=== PATIENT | female | born 1990 | race Hispanic/Latino ===

== ENCOUNTER 2020-11-25 08:45 | Emergency (ER) | payer OTHER, SELFPAY ==
[2020-11-25 08:55] VITALS: BP 138/91; PULSE 89; RESP 16; TEMP 36.7; O2SAT 99
--- NOTE | 2020-11-25 09:04 | ED.EAR ---
HPI - Ear Problem General Chief complaint: Ear Stated complaint: ear pain Time Seen by Provider: 11/25/20 09:00 Source: patient Mode of arrival: ambulatory Limitations: no limitations History of Present Illness HPI Narrative: Sarah Echevarria is a 30 yo female with no PMH who comes to [facility] with complaints of right ear tenderness and drainage for the past 2 days. She states she has had some on and off tenderness for up to 2 weeks denies regular use of Q-tips are putting anything the ear that would obstruct it. States ear canal feels swollen Related Data Home Medications Medication Instructions Recorded Confirmed No Home Medications 04/15/19 11/25/20 Allergies Allergy/AdvReac Type Severity Reaction Status Date / Time No Known Allergies Allergy Verified 11/25/20 09:02 Review of Systems Review of Systems: CONSTITUTIONAL: Denies fever, chills, sweats. EYES: Denies visual changes, redness, discharge. ENT: Denies rhinorrhea, congestion, sore throat, right otalgia. CARDIOVASCULAR: Denies chest pain, palpitations, edema. RESPIRATORY: Denies dyspnea, wheezing, cough GASTROINTESTINAL: Denies abdominal pain, nausea, vomiting, diarrhea. GENITOURINARY: Denies dysuria, hematuria, abnormal discharge SKIN: Denies rash or itching. NEUROLOGIC: Denies numbness, or focal weakness. PSYCHIATRIC: Denies anxiety or depression. PMFSH Past Medical History Medical History Subcutaneous mass of left upper extremity Family History Family History Father Family history of elevated blood lipids Hypertension Mother Family history of elevated blood lipids Hypertension Family history of diabetes mellitus in first degree relative Social History Social History Smoking status: Never smoker Alcohol intake: current Gender identity (if verbalized by the patient): Female Comments At time of signature, I agree with nursing past medical, surgical, social and family history. There is no relevant family history pertinent to the presenting complaint. Blood pressure elevated at this visit should follow-up with PCP this week for recheck Exam Narrative: GENERAL: This is a well-nourished, well-developed patient, in mild distress. HEAD: normocephalic, atraumatic. EYES: Sclera clear/white. Vision is grossly intact. EARS: External ears normal, auditory canals clear on L, mild erythema, R canal edematous, erythema, cloudiness of TM. TMs normal without perforation. Hearing grossly intact. NOSE: External nose normal without nasal discharge, nares without redness, no rhinorrhea. THROAT: Mucous membranes moist, NECK: Neck supple, CARDIOVASCULAR: Regular rate and rhythm without murmurs, gallops, or rubs. RESPIRATORY: Clear to auscultation. Breath sounds equal bilaterally. No wheezes, rales, or rhonchi. GASTROINTESTINAL: Abdomen soft, SKIN: warm, intact with no suspicious lesions or rash, good texture and turgor. NEURO: awake, alert, and oriented to person, place and time. There were no obvious focal neurologic abnormalities. Steady gait EXTREMITIES: Normal range of motion. BACK: Nontender without deformity Course Course Emergency Course: Patient comes with right ear drainage and tenderness Polymyxin and Zyrtec Patient has history of ear infections and started out with ear itchiness. Started on Zyrtec but should follow-up with primary care physician Vital Signs Vital signs: Vital Signs Temperature 98.1 F 11/25/20 08:55 Pulse Rate 89 11/25/20 08:55 Respiratory Rate 16 11/25/20 08:55 Blood Pressure 138/91 H 11/25/20 08:55 Pulse Oximetry 99 11/25/20 08:55 Temperature 98.1 F 11/25/20 08:55 Pulse Rate 89 11/25/20 08:55 Respiratory Rate 16 11/25/20 08:55 Blood Pressure 138/91 H 11/25/20 08:55 Pulse Oximetry 99 11/25/20 08:55 Medical
== END 2020-11-25 09:28 | disposition home or self-care (01) ==
PROVIDERS: Emergency Provider Nurse Practitioner; PCP Family Medicine
DX: H65.01 Acute serous otitis media, right ear (principal)
CPT/HCPCS: 99213; G0463

== ENCOUNTER → 2023-03-24 15:52 | Outpatient (CLI) | payer OTHER, SELFPAY ==
--- NOTE | ~2023-03-24 | US_ITS ---
Pelvic ultrasound. Clinical History: First trimester , establish dates and viability Technique: Realtime transabdominal and transvaginal scanning of the pelvis was performed. Color flow Doppler and Doppler spectral analysis were performed. Findings: The uterus is anteverted, and contains an intrauterine gestation. Probable exophytic fibroi d anteriorly measures 1.7 cm in diameter. Eminence-rump length of 2.4 cm corresponds to an estimated ges tational age of 9 weeks 1 day. heart rate is 179 bpm. The right ovary is not visualized. No significant right ovarian or adnexal mass is seen. The left ovary measures 2.1 x 1.9 x 2.0 cm. No significant left ovarian or adnexal mass is seen. There is no evidence of free fluid in the cul de sac. Impression: Live intrauterine gestation, with estimated gestational age of 9 weeks 1 day. heart rate is 179 bpm. Sonographic STACIE is 10/26/2023. Probable small exophytic fibroid, as above. Reviewed, dictated and finalized at location . DATA ARCHITECT Impression: Live intrauterine gestation, with estimated gestational age of 9 weeks 1 day. F etal heart rate is 179 bpm. Sonographic STACIE is 10/26/2023. Probable small exophytic fibroid, as above.
== END ==
PROVIDERS: PCP Advanced Practice Midwife; Visit Provider Advanced Practice Midwife
DX: O36.80X0 Pregnancy with inconclusive fetal viability, not applicable or unspecified (principal)
CPT/HCPCS: 76817

== ENCOUNTER → 2023-05-31 09:16 | Outpatient (CLI) | payer OTHER, SELFPAY ==
--- NOTE | ~2023-05-31 | US_ITS ---
EXAMINATION: US OB /maternal detail DATE: 05/31/2023 10:19 INDICATION: Second trimester anatomic survey TECHNIQUE: Real-time ultrasound of the pelvis was performed. COMPARISON: None. FINDINGS: There is a single living fetus in variable presentation. The placenta is anterior and 10.7 cm from th e internal cervical os. The measured cervical length is 4.4 cm. heart rate is 152 beats per min reginaldo (bpm). cardiac activity and movement are noted. The amniotic fluid index is subjecti vely normal. The following anatomy was identified as normal: 4 chamber heart 3 vessel cord cord insertion kidneys urinary bladder stomach spine diaphragm ventricles cisterna magna cerebellum The following biometric data were obtained: Biparietal diameter (BPD): 4.4 cm; head circumference (HC): 16.6 cm; abdominal circumference (AC): 13 .9 cm; femur length (FL): 2.8 cm. These measurements are concordant. Estimated weight is 268 g +/- 40 g, which correlates with the 55th percentile when 10/26/2023 is used as estimated date of delivery. As single measurements, these parameters are each equal to the following estimated gestational ages w ith ranges of +/- 2 standard deviations: BPD: 19 weeks 2 days ( 17 weeks 4 days - 21 weeks 0 days). HC: 19 weeks 2 days ( 17 weeks 6 days - 20 weeks 6 days). AC: 19 weeks 2 days ( 17 weeks 2 days - 21 weeks 3 days). FL: 18 weeks 4 days ( 16 weeks 5 days - 20 weeks 2 days). estimated gestational age based solely on measurements from this exam is 19 weeks 1 days +/- 1 weeks 2 days. IMPRESSION: 1. Single living fetus in variable presentation. 2. Estimated weight is 268 g +/- 40 g, which correlates with the 55th percentile when 10/26/2023 is used as estimated date of delivery. Reviewed, dictated and finalized at location B. PATTERN ASSEMBLER IMPRESSION: 1. Single living fetus in variable presentation. 2. Estimated weight is 268 g +/- 40 g, which correlates with the 55th per centile when 10/26/2023 is used as estimated date of delivery.
== END ==
PROVIDERS: PCP Advanced Practice Midwife; Visit Provider Advanced Practice Midwife
DX: Z36.9 Encounter for antenatal screening, unspecified (principal); Z3A.19 19 weeks gestation of pregnancy
CPT/HCPCS: 76805

== ENCOUNTER 2023-08-14 16:28 | Outpatient (CLI) | payer OTHER, SELFPAY ==
[2023-08-14] VITALS (8 sets, daily range): BP systolic 110–130; BP diastolic 78–86; PULSE 70–90; BMI 45.2
[2023-08-14 17:37] LABS: Basophils Percent Auto 0.3 % (0.2-1.2); Eosinophils Percent Auto 0.3 % (0-4.4); Hematocrit 39.8 % (37.0-47.0); Hemoglobin 12.9 g/dL (12.0-15.0); Immature Granulocyte Absolute 0.08 K/mm3 (0.00-0.031); Immature Granulocyte Percent A 0.6 % (0-0.5); Lymphocytes Absolute Auto 2.87 K/mm3 (0.9-3.2); Lymphocytes Percent Auto 23.2 % (18.3-44.2); Mean Corpuscular HGB Conc 32.4 g/dl (32-36); Mean Corpuscular Hemoglobin 30.4 pg (26-34); Mean Corpuscular Volume 93.6 fl (80-100); Mean Platelet Volume 10.6 fl (7.4-10.4); Monocytes Absolute Auto 0.6 K/mm3 (0.1-0.6); Monocytes Percent Auto 4.8 % (2.6-8.5); Neutrophils Absolute Auto 8.7 K/mm3 (1.3-6.7); Neutrophils Percent Auto 70.8 % (45.5-73.1); Platelet Count Result 283 k/mm3 (150-375); Red Blood Count 4.25 M/mm3 (4.2-5.4); Red Cell Distribution Width 13.2 % (11.5-14.5); White Blood Count 12.4 K/mm3 (4.5-10.0)
[2023-08-14 17:47] LABS: Alanine Aminotransferase 12 U/L (6-35); Alkaline Phosphatase 104 U/L (38-126); Anion Gap 6 mmol/L (4-12); Aspartate Amino Transferase 18 U/L (14-36); Bilirubin,Total 0.3 mg/dL (0.2-1.3); Blood Urea Nitrogen 11 mg/dL (7-17); Calcium 9.6 mg/dL (8.4-10.2); Carbon Dioxide 23 mmol/L (22-30); Chloride 108 mmol/L (98-107); Estimated Glomerular Filt Rate > 60; Glucose 92 mg/dL (65-110); Potassium 4.6 mmol/L (3.4-5.0); Sodium 137 mmol/L (137-145); Uric Acid 5.5 mg/dL (2.5-7.5)
[2023-08-14 18:08] LABS: Appearance Urine Cloudy (Clear); Bacteria Urine None Seen /hpf; Bilirubin Urine Negative (Negative); Blood Urine Negative (Negative); Color Urine Yellow (Yellow); Glucose Urine UA Negative (Negative); Ketones Urine 2+ mg/dL (Negative); Leukocyte Esterase Ur Trace LEU/UL (Negative); Nitrate Urine Negative (Negative); Non Pathogenic Casts 0-2; Protein Urine Negative (Negative); RBC Urine 0-2 /hpf (0-2); Specific Grav Ur 1.015 (1.001-1.035); Squamous Epithelial Cell Urine Occasional /hpf (Few); Urobilinogen Urine 0.2 mg/dL (<2.0); WBC Urine 0-5 /hpf (0-3)
[2023-08-14 18:10] LABS: Add Urine Microscopic? YES; Creatinine Urine 66.9 mg/dL; Total Protein Urine Random 6 mg/dL; Ur Ttl Prot Creatinine Ratio 0.09 mg/mg (0-0.20)
--- NOTE | 2023-08-14 18:30 | PC.NURSE ---
Dr. Corrigan returned page and informed of reactive NST with 15 beat accels at 30 wks. Informed of BP's and lab results. OK to discharge pt to home. Pt to do 24 hr urine collection to have a baseline.
== END 2023-08-14 18:45 | disposition home or self-care (01) ==
LOC: ANHOBOP 16:33 → ANHOBPP 16:33
PROVIDERS: Visit Provider Advanced Practice Midwife
DX: O13.9 Gestational [pregnancy-induced] hypertension without significant proteinuria, unspecified trimester (principal)
CPT/HCPCS: 36415; 59025; 80053; 81001; 82570; 84156; 84550; 85025; 99199

== ENCOUNTER 2023-08-16 15:11 | Outpatient (CLI) | payer OTHER, SELFPAY ==
[2023-08-16 15:20] VITALS: BMI 45.1
[2023-08-16 16:54] LABS: Collection Time Urine 24 HOURS
[2023-08-16 17:22] LABS: Total Volume 24 Hour Urine 1650 ml
[2023-08-16 17:22] LABS: Total Volume 24 Hour Urine 1650 ml
[2023-08-16 17:43] LABS: Creatinine Clearance Urine 136.7 ml/min (75-125); Creatinine Urine 99.7 mg/dL; Patient Weight 297 Lbs
[2023-08-16 18:03] LABS: Total Protein Urine 24 Hr 82 mg/24hr (28-141); Total Protein Urine Random < 5 mg/dL
== END 2023-08-16 15:12 | disposition home or self-care (01) ==
LOC: ANHOBOP 15:18
PROVIDERS: Visit Provider Obstetrics & Gynecology Gynecology
DX: Z34.90 Encounter for supervision of normal pregnancy, unspecified, unspecified trimester (principal); Z3A.00 Weeks of gestation of pregnancy not specified
CPT/HCPCS: 81050; 82575; 84156

== ENCOUNTER 2023-09-23 09:34 | Outpatient (CLI) | payer OTHER, SELFPAY ==
--- NOTE | ~2023-09-23 | US_ITS ---
LIMITED OBSTETRIC ULTRASOUND Ordering provider: Aliyah Rod, [employer] History: . Size greater than dates . Comparison: None. FINDINGS/impression: Single live fetus. Gestational age is 35 weeks. STACIE is October 28, 2023. The cervix measures 3.4 cm. PRESENTATION: Vertex. Longitudinal lie. PLACENTAL LOCATION: Anterior No previa. Distance from cervix is out of range. HEART RATE: 159 bpm (normal is between 110 to 160 bpm). AMNIOTIC FLUID INDEX: 15 cm. Largest vertical pocket is 4.8 cm. normal (JUNE between 5-25 cm in from 20-35 weeks gestation is considered normal). Estimated weight is 2471 gm. Reviewed, dictated and finalized at location A.
== END 2023-09-23 09:35 ==
PROVIDERS: PCP Nurse Practitioner Women's Health; Visit Provider Nurse Practitioner Women's Health
DX: O36.63X0 Maternal care for excessive fetal growth, third trimester, not applicable or unspecified (principal)
CPT/HCPCS: 76816

== ENCOUNTER 2023-09-23 10:04 | Inpatient (IN) | payer OTHER, SELFPAY ==
[2023-09-23] VITALS (81 sets, daily range): BP systolic 124–180; BP diastolic 78–100; PULSE 46–91; RESP 18; TEMP 36.8; O2SAT 98–100; BMI 45.2
[2023-09-23 10:48] LABS: Basophils Percent Auto 0.3 % (0.2-1.2); Eosinophils Percent Auto 0.3 % (0-4.4); Hematocrit 41.2 % (37.0-47.0); Hemoglobin 13.6 g/dL (12.0-15.0); Immature Granulocyte Percent A 0.9 % (0-0.5); Lymphocytes Percent Auto 20.8 % (18.3-44.2); Mean Corpuscular Hemoglobin 30.4 pg (26-34); Mean Platelet Volume 10.9 fl (7.4-10.4); Monocytes Absolute Auto 0.7 K/mm3 (0.1-0.6); Monocytes Percent Auto 6.2 % (2.6-8.5); Neutrophils Absolute Auto 8.3 K/mm3 (1.3-6.7); Neutrophils Percent Auto 71.5 % (45.5-73.1); Platelet Count Result 191 k/mm3 (150-375); Red Blood Count 4.48 M/mm3 (4.2-5.4); White Blood Count 11.6 K/mm3 (4.5-10.0)
[2023-09-23 10:54] LABS: Appearance Urine Clear (Clear); Bacteria Urine Rare /hpf; Bilirubin Urine Negative (Negative); Blood Urine Negative (Negative); Color Urine Yellow (Yellow); Glucose Urine UA Negative (Negative); Ketones Urine Negative (Negative); Leukocyte Esterase Ur Negative LEU/UL (Negative); Nitrate Urine Negative (Negative); Non Pathogenic Casts 0-2; Protein Urine 1+ mg/dL (Negative); RBC Urine 0-2 /hpf (0-2); Specific Grav Ur 1.015 (1.001-1.035); Squamous Epithelial Cell Urine None Seen /hpf (Few); Urobilinogen Urine 0.2 mg/dL (<2.0); WBC Urine 0-5 /hpf (0-3); pH Urine 6.5 (5.0-9.0)
[2023-09-23 10:55] LABS: Creatinine Urine 89.9 mg/dL; Total Protein Urine Random 37 mg/dL; Ur Ttl Prot Creatinine Ratio 0.41 mg/mg (0-0.20)
[2023-09-23 10:58] LABS: Alanine Aminotransferase 38 U/L (6-35); Albumin Level 3.7 g/dL (3.5-5.1); Alkaline Phosphatase 132 U/L (38-126); Anion Gap 4 mmol/L (4-12); Aspartate Amino Transferase 59 U/L (14-36); Bilirubin,Total 0.4 mg/dL (0.2-1.3); Blood Urea Nitrogen 13 mg/dL (7-17); Calcium 9.2 mg/dL (8.4-10.2); Carbon Dioxide 24 mmol/L (22-30); Chloride 105 mmol/L (98-107); Estimated Glomerular Filt Rate > 60; Glucose 82 mg/dL (65-110); Potassium 4.6 mmol/L (3.4-5.0); Sodium 133 mmol/L (137-145); Uric Acid 8.3 mg/dL (2.5-7.5)
[2023-09-23 11:08] LABS: Add Urine Microscopic? YES
--- NOTE | 2023-09-23 11:18 | PC.NURSE ---
Beka Lombardo CNM informed of reactive NST, BP's, and lab results including elevated liver enzymes, uric acid, and total protein/ creatinine ratio. CNM plans to discuss pt with Dr. Pauline Littlejohn.
[2023-09-23 11:40] LABS: Lactate Dehydrogenase 289 U/L (120-246)
--- NOTE | 2023-09-23 11:59 | PM.IMHP ---
H&P: HPI History of Present Illness Date/Time: 09/23/23 11:59 Chief Complaint: Elevated blood pressure in the office Narrative: 1. 33 y.o. at 35 weeks 5 days by LMP = 1st trimester ultrasound 2. Severe range BP in the office 3. gHTN 4. uterine fibroid 5. Hx PVCs Review of Systems Review of Systems: All systems reviewed & are unremarkable except as noted in HPI and below PMFSH Past Medical History Medical History Subcutaneous mass of left upper extremity Family History Family History Father Family history of elevated blood lipids Hypertension Mother Family history of elevated blood lipids Hypertension Family history of diabetes mellitus in first degree relative Social History Social History Smoking status: Never smoker Alcohol intake: current Gender identity (if verbalized by the patient): Female Meds Home Medications and Allergies Home Medications Medication Instructions Recorded Confirmed Type aspirin 81 mg capsule 81 mg PO DAILY 08/14/23 08/14/23 History ergocalciferol (vitamin D2) 1,250 1,250 mcg PO 2XW 08/14/23 08/14/23 History mcg (50,000 unit) capsule (Vitamin D2) vit no.95-ferrous 1 tablet PO DAILY 08/14/23 08/14/23 History fumarate 28 mg-folic acid 800 mcg tablet () Allergies Allergy/AdvReac Type Severity Reaction Status Date / Time No Known Allergies Allergy Verified 11/25/20 09:02 Vital Signs Vital Signs - 24 hr 09/23/23 10:33 09/23/23 10:46 09/23/23 11:00 Pulse Rate 59 L 56 L 48 L Blood Pressure 138/87 129/81 124/78 09/23/23 11:15 Pulse Rate 46 L Blood Pressure 129/79 Exam Const: General: comfortable and no acute distress Eyes: General: appearance normal, both eyes and all related structures Neck: Neck: supple Resp: Effort & Inspection: normal respiratory effort Auscultation: clear to auscultation bilaterally Cardio: Rate: bradycardic GI: GI Palp: Yes Soft to palpation : General: Yes bladder normal to palpation Skin: General skin exam: normal color and no rashes or lesions noted Neuro: General: gait normal Speech: normal speech Sensory Exam: normal sensation Extrem: General: normal to inspection Psych: Mental Status: mental status grossly normal Affect: normal affect H&P: Results Labs Labs: Short CBC 09/23/23 Range/Units 10:33 WBC 11.6 H (4.5-10.0) K/mm3 Hgb 13.6 (12.0-15.0) g/dL Hct 41.2 (37.0-47.0) % Plt Count 191 (150-375) k/mm3 BMP 09/23/23 10:33 Sodium 133 L Potassium 4.6 Chloride 105 Carbon Dioxide 24 BUN 13 Creatinine 0.80 Glucose 82 Calcium 9.2 Liver Function 09/23/23 Range/Units 10:33 Total Bilirubin 0.4 (0.2-1.3) mg/dL AST 59 H (14-36) U/L ALT 38 H (6-35) U/L Alkaline Phosphatase 132 H (38-126) U/L Albumin 3.7 (3.5-5.1) g/dL Urine 09/23/23 Range/Units 10:33 Urine Color Yellow (Yellow) Urine Appearance Clear (Clear) Urine pH 6.5 (5.0-9.0) Ur Specific [facility] 1.015 (1.001-1.035) Urine Protein 1+ H (Negative) mg/dL Urine Glucose (UA) Negative (Negative) mg/dL Assessment and Plan Assessment and plan (1) Preeclampsia: Code(s): O14.90 - Unspecified pre-eclampsia, unspecified trimester Status: Acute (2) Bradycardia: Code(s): R00.1 - Bradycardia, unspecified Status: Acute (3) Uterine fibroid complicating care, baby not yet delivered: Code(s): O34.10 - Maternal care for benign tumor of corpus uteri, unspecified trimester; D25.9 - Leiomyoma of uterus, unspecified Status: Acute Plan 1. 33 y.o. at 35 weeks 5 days by LMP = 1st trimester ultrasound - plan NSTs BID - s/p growth US today, results pending - celestone for lung maturit
--- NOTE | 2023-09-23 12:03 | ECG_ITS ---
Test Date: 2023-09-23 12:22:21 Measurements Intervals [place] Rate: 47 P: 28 NE: 145 QRS: -18 QRSD: 89 T: 19 QT: 445 QTc: 397 Interpretive Statements SINUS BRADYCARDIA LOW QRS VOLTAGE IN PRECORDIAL LEADS [QRS DEFLECTION < 1.0 mV IN CHEST LEADS] INCOMPLETE RIGHT BUNDLE BRANCH BLOCK No previous ECG available for comparison Electronically Signed On 09-23-2023 16:04:25 CDT by Renny Stephens M.D.
[2023-09-23] MEDS: BETAMETHASONE SOD PHOS/ACETATE 30 MG/5 ML VIAL 12 MG IM (12:39)
--- NOTE | 2023-09-23 15:31 | PC.NURSE ---
Pt has now had 3 severe range BP's while pre-admission being done. Pt continues to deny headache, visual disturbance, epigastric/RUQ pain. DTR's 1+ and no clonus. Beka Lombardo [facility] paged.
--- NOTE | 2023-09-23 15:52 | PC.NURSE ---
monitor reapplied to assess baby due to pt's severe BP's.
--- NOTE | 2023-09-23 16:04 | PM.OBPNLAB ---
Pain Control Date/time seen: 09/23/23 16:00 Assessment and Plan Comments: CNM called by Patricia MCKNIGHT. Pt noted to have 3 severe range BPs during registration process. Repeat BP mild at 147/91. Continue BPs q 15 and plan to treat with maternal HTN protocol for any sustained severe range BPs. Pt denies PARRA, visual changes, RUQ pain per RN. Previously discussed plan of care with Dr. Pauline Littlejohn. aware of maternal HR, EKG, labs. Plan repeat labs in the am.
--- NOTE | 2023-09-23 16:15 | PC.NURSE ---
Dr. Pauline Littlejohn (Back up OB MD for Beka PARKER while Dr. Corrigan out of town) on unit and updated on pt having severe range BP's and was waiting for return page from CNM. Order received for IV Labetalol protocol. MD does not want Magnesium sulfate started at this time.
--- NOTE | 2023-09-23 16:24 | PC.NURSE ---
Beka Lombardo [facility] returned page and informed of severe range BP's that Dr. Pauline Littlejohn gave orders for IV Labetalol, but no Magnesium sulfate at this time.
--- NOTE | 2023-09-23 16:27 | PC.NURSE ---
Dr. Pauline Littlejohn in to see pt and discussed plan of care- trying to get steroids on board to help with this expected delivery. If we can stabilize BP's, would like to repeat Celestone in 24 hr and induce labor on . MD did discuss that Magnesium Sulfate is used to prevent seizures in people with preeclampsia, but doesn't feel it is needed yet. Pt to report any symptoms of headahce, visual disturbance, or upper abdominal pain. Pt's questions answered.
--- NOTE | 2023-09-23 16:48 | PC.NURSE ---
Dr. Pauline Littlejohn informed that after IV was placed, repeat BP 144/88. Order received to hold IV Labetalol and start PO now.
[2023-09-23] MEDS: LABETALOL HCL 100 MG TABLET 200 MG PO (16:56)
--- NOTE | 2023-09-23 18:02 | PC.NURSE ---
Dr. Pauline Littlejohn on unit and reviewed monitor with MD including period of tachycardia that has resolved and now back to her baseline of 135 and reactive. Discussed improved BP's. OK to go back to intermittent monitoring. BP's q 1 hr for the next couple of hours and if they remain OK to go to q 4 hr.
[2023-09-23 18:09] LABS: HIV 1/2 Ab P24 Ag Result Negative (Negative)
--- NOTE | 2023-09-23 19:00 | LDADM ---
This patient, Sarah Echevarria, was admitted to OB Post [facility] on 09/23/23 at 10:04. Plans for labor, pain management and were discussed with patient. Patient/family oriented to hospital policies and general routines including ID bracelet, bed and alarms, visiting hours, pain management, procedures, bathroom and other care routines, personal items, smoking policy, room service/diet and guest tray routines, security routines, and visiting hours. Patient/Family are encouraged to report perceived risks to care and to ask questions if they do not understand what they are told or what they should do. See OBIX for further documentation.
--- NOTE | 2023-09-23 19:57 | PC.NURSE ---
Dr. Pauline Littlejohn informed of EKG report with incomplete right bundle branch block. Pt's pulse has been in the 60's- 70's the last few hours.
[2023-09-24] VITALS (160 sets, daily range): BP systolic 114–154; BP diastolic 65–91; PULSE 57–95; RESP 16; TEMP 36.3–37.3; O2SAT 98–100; BMI 46.3
[2023-09-24] MEDS: FAMOTIDINE 20 MG/2 ML VIAL IV PUSH (00:36)
[2023-09-24] MEDS: LABETALOL HCL 100 MG TABLET 200 MG PO ×3 (01:06→17:06)
[2023-09-24 05:33] LABS: Hemoglobin 14.4 g/dL (12.0-15.0); Mean Corpuscular HGB Conc 32.7 g/dl (32-36); Mean Corpuscular Hemoglobin 30.3 pg (26-34); Mean Corpuscular Volume 92.4 fl (80-100); Mean Platelet Volume 10.8 fl (7.4-10.4); Platelet Count Result 200 k/mm3 (150-375); Red Blood Count 4.76 M/mm3 (4.2-5.4); Red Cell Distribution Width 12.9 % (11.5-14.5); White Blood Count 14.2 K/mm3 (4.5-10.0)
[2023-09-24 05:45] LABS: Albumin Level 4.2 g/dL (3.5-5.1); Alkaline Phosphatase 133 U/L (38-126); Anion Gap 11 mmol/L (4-12); Aspartate Amino Transferase 46 U/L (14-36); Bilirubin,Total 0.5 mg/dL (0.2-1.3); Blood Urea Nitrogen 14 mg/dL (7-17); Calcium 8.9 mg/dL (8.4-10.2); Carbon Dioxide 18 mmol/L (22-30); Chloride 102 mmol/L (98-107); Estimated CRCL calculation 145 ml/min; Estimated Glomerular Filt Rate > 60; Glucose 115 mg/dL (65-110); Lactate Dehydrogenase 225 U/L (120-246); Potassium 3.7 mmol/L (3.4-5.0); Sodium 131 mmol/L (137-145)
[2023-09-24 05:54] LABS: Alanine Aminotransferase 41 U/L (6-35)
[2023-09-24] MEDS: MULTIVIT/MIN/PREN/FOL AC/IRON TABLET 1 TAB PO (08:57)
[2023-09-24] MEDS: ERGOCALCIFEROL 50,000 UNITS CAPSULE 50000 UNITS PO (08:57)
[2023-09-24] MEDS: ASPIRIN 81 MG ENTERIC TABLET PO (08:57)
--- NOTE | 2023-09-24 10:02 | PC.NURSE ---
Off monitor to shower.
[2023-09-24] MEDS: BETAMETHASONE SOD PHOS/ACETATE 30 MG/5 ML VIAL 12 MG IM (12:08)
--- NOTE | 2023-09-24 12:52 | P.PNOB_ITS ---
OB - PN: Subj Subjective Date/time seen: 09/24/23 0725 Interval history: CNM at bedside. Denies PARRA, visual changes, RUQ pain, or change in edema. Discussed plan of care in great detail including celestone, labs, BPs, and preeclampsia. Patient comments: no complaints OB - PN: Obj Data Labs 09/24/23 05:08 09/24/23 05:08 Labs: Laboratory Results - last 24 hr 09/23/23 09/23/23 09/24/23 10:33 17:05 05:08 WBC 14.2 H RBC 4.76 Hgb 14.4 Hct 44.0 MCV 92.4 MCH 30.3 MCHC 32.7 RDW 12.9 Plt Count 200 MPV 10.8 H Sodium 131 L Potassium 3.7 Chloride 102 Carbon Dioxide 18 L Anion Gap 11 BUN 14 Creatinine 0.70 Estim Creat Clear Calc 145 Estimated GFR > 60 Glucose 115 H Calcium 8.9 Total Bilirubin 0.5 AST 46 H ALT 41 H Alkaline Phosphatase 133 H Lactate Dehydrogenase 225 Total Protein 8.0 Albumin 4.2 HIV 1&2 Ab/P24 Ag 4thGn Negative Blood Type A Positive Antibody Screen Negative OB - PN A/P Assessment and Plan (1) Preeclampsia: Code(s): O14.90 - Unspecified pre-eclampsia, unspecified trimester Status: Acute Time Spent With Patient Time: Total time spent is greater than 50% in coordination of care (as documented) at patient's floor/unit and/or counseling patient: Review of Systems Review of Systems: All systems reviewed & are unremarkable except as noted in HPI and below Exam Const: General: cooperative, healthy appearing, no acute distress and awake Nutritional Appearance: obese Orientation/consciousness: patient oriented x3 Limitations: no limitations HENMT: Head: normal to inspection Eyes: General: appearance normal, both eyes and all related structures Resp: Effort & Inspection: normal respiratory effort and able to speak in complete sentences Cardio: Rate: regular rate and bradycardic (on EKG 09/23/23) GI: Inspection: normal to inspection Back/Spine/Pelvis: Back: no CVA tenderness Skin: General skin exam: normal color and no rashes or lesions noted Rashes: no rashes Neuro: General: patient oriented x3 Speech: normal speech Deep tendon reflexes (DTR's): Right brachioradialis reflex intensity grade: 2+ and Left br achioradialis reflex intensity grade: 2+ Extrem: General: normal to inspection and capillary refill normal Right lower extremity: edema (trace) Left lower extremity: edema (trace) Psych: Appearance: grossly normal Mental Status: mental status grossly normal Speech and movement: Normal speech and movement present Affect: normal affect Attitude: cooperative Thought process: Normal thought process present Insight: Good insight present (Psych) Judgement: Good judgement present (Psych)
[2023-09-24] MEDS: CALCIUM CARBONATE (TUMS) 500 MG (200 MG ELEMENTAL) PO (12:54)
--- NOTE | 2023-09-24 13:01 | PM.OBPNVD ---
OB - PN: Subj Subjective Date/time seen: 09/24/23 13:01 Interval history: Called and spoke with pt on telephone. Dr. Pauline Littlejohn previously discussed and recommended IOL this evening d/t preeclampsia. pt has no additional questions at this time. OB - PN: Obj Data Labs 09/24/23 05:08 09/24/23 05:08 Labs: Laboratory Results - last 24 hr 09/23/23 09/23/23 09/24/23 10:33 17:05 05:08 WBC 14.2 H RBC 4.76 Hgb 14.4 Hct 44.0 MCV 92.4 MCH 30.3 MCHC 32.7 RDW 12.9 Plt Count 200 MPV 10.8 H Sodium 131 L Potassium 3.7 Chloride 102 Carbon Dioxide 18 L Anion Gap 11 BUN 14 Creatinine 0.70 Estim Creat Clear Calc 145 Estimated GFR > 60 Glucose 115 H Calcium 8.9 Total Bilirubin 0.5 AST 46 H ALT 41 H Alkaline Phosphatase 133 H Lactate Dehydrogenase 225 Total Protein 8.0 Albumin 4.2 HIV 1&2 Ab/P24 Ag 4thGn Negative Blood Type A Positive Antibody Screen Negative OB - PN A/P Time Spent With Patient Time: Total time spent is greater than 50% in coordination of care (as documented) at patient's floor/unit and/or counseling patient:
[2023-09-24 13:49] LABS: Rapid Plasma Reagin Non-Reactive (NonReactive)
--- NOTE | 2023-09-24 14:00 | PC.NURSE ---
Heartburn has resolved
--- NOTE | 2023-09-24 15:00 | PC.NURSE ---
Pt feeling flushed- cheeks look flushed. Temp 98.3
--- NOTE | 2023-09-24 15:05 | PC.NURSE ---
Transferred to labor room 105 per wheelchair with personal belongings. present.
[2023-09-24] MEDS: DINOPROSTONE 10 MG VAG INSERT VAGINAL (16:28)
[2023-09-24] MEDS: ACETAMINOPHEN 500 MG TABLET 1000 MG PO (20:56)
[2023-09-25] VITALS (106 sets, daily range): BP systolic 83–165; BP diastolic 54–117; PULSE 45–147; RESP 12–17; TEMP 36.3–36.9; O2SAT 97–100
[2023-09-25] MEDS: LABETALOL HCL 100 MG TABLET 200 MG PO ×2 (00:35→08:57)
[2023-09-25] MEDS: LABETALOL HCL INJ 100 MG/20 ML VIAL 20 MG IV PUSH (03:44)
[2023-09-25] MEDS: miSOPROStol 25 MCG TABLET PO (04:32)
--- NOTE | 2023-09-25 06:41 | PM.OBPNLAB ---
Pain Control Date/time seen: 09/25/23 06:41 Pain control: tolerating well Comments: received IV labetalol through the night. Pelvic Exam Dilation (cm): 1 Effacement (%): 50 station: -2
--- NOTE | 2023-09-25 06:53 | PM.OBPNLAB ---
Pain Control Date/time seen: 09/25/23 06:53 Pain control: tolerating well Pelvic Exam Dilation (cm): 2 Effacement (%): 50 station: -2 Amniotic membrane status: Leaking Contractions Monitor mode: Internal
[2023-09-25] MEDS: LACTATED RINGERS 1,000 ML 125 ML IV CONT ×3 (07:08→11:24)
[2023-09-25] MEDS: AMPICILLIN 2 GM/NS 100 ML 2 GM/100 ML BAG IVPB (07:09)
[2023-09-25] MEDS: OXYTOCIN 30 UNITS/NS 500 ML 30 UNITS/500 ML BAG IV CONT (08:59)
[2023-09-25] MEDS: DEXTROSE 5%/LACTATED RINGERS 1,000 ML 125 ML IV CONT (09:36)
[2023-09-25] MEDS: SODIUM CHLORIDE 0.9% IV 300 ML 600 ML I-UTERINE (10:51)
--- NOTE | 2023-09-25 11:26 | PM.OBPNLAB ---
Pain Control Date/time seen: 09/25/23 11:26 Pain control: tolerating well Comments: heart tones remaining flat with minimal variability despite attempts with fluids sugar etc. patient remains 4cm is offered low-transverse section. Risks and benefits reviewed Pelvic Exam Dilation (cm): 4 Effacement (%): 50 station: -2 Amniotic membrane status: Leaking Contractions Monitor mode: Internal
[2023-09-25] MEDS: AZITHROMYCIN 500 MG/NS 250 ML 500 MG/250 ML BAG 250 MG IVPB (11:40)
[2023-09-25] MEDS: FAMOTIDINE 20 MG/2 ML VIAL IV PUSH (11:52)
[2023-09-25] MEDS: ONDANSETRON INJ 4 MG/2 ML VIAL IV PUSH (11:53)
--- NOTE | 2023-09-25 12:47 | P.PCNOB_ITS ---
OB - Delivery Note Procedure Delivery date: 09/25/23 Pre-op diagnosis: Preeclampsia w/o severe features Post-op Diagnosis: Same Induction method: Per Cervidil Protocol Delivery augmentation: Rupture of Membranes Delivery monitor: External FHT, Internal FHT and Internal Uterine Prior to decision for section, ACOG/SM labor guidelines were considered and discussed with the patient and staff. Decision made to proceed with the section.: Yes Procedure Performed: Primary Surgeon: Bertin Littlejohn MD Anesthesia type: Spinal Description of Procedure/Findings: Submitted at 36 weeks with -induced hypertension. Early this a.m. artificial rupture membranes was performed. Got to 4cm but the baby did not respond to resuscitative measures were measures. She was offered low-transverse section. After obtaining informed consent she was taken back and prepped and draped in the normal sterile fashion placed in the dorsal in the supine position. Under excellent spinal anesthetic the abdomen was entered in Pfannenstiel fashion progressed through layers to the fascia. Fascia incised in midline carried in upward outward fashion bilaterally. Underlying muscles sharply dissected. Parietal peritoneum 0 by Elo clamp. Bladder blade was placed. Bladder flap was formed. The bladder blade returned. A low transverse incision made the head delivered in JAYCEE position. Nuchal cord checked noted be loose x1 we rolled occiput. Anterior posterior shoulder delivered spontaneously. Cord clamped and cut infant passed off the table with an Apgars of 6 and 9. Placenta delivered intact manually. A large golf ball sized pedunculated fibroid was seen anteriorly. The after assuring no membranes and debris were present. The uterus was closed with continuous running locking 0 V icryl from lateral edge to the lead followed by 2nd imbricating running locking Vicryl from lateral edge to lateral edge. Hemostasis was assured. Ovaries and tubes appeared within normal limits in the uterus returned the abdomen. The hysterotomy incision was inspected 1 last time noted be hemostatic. Laps removed and accounted for. Fascia closed with continuous running Vicryl 0 Vicryl from lateral edge to lateral edge. Irrigation subcutaneous layer and the skin closed with 4 Monocryl glue. QBL was 255. All sponge, needle, instrument counts were correct. There were no immediate complications Specimen: Yes Estimated Blood Loss: 275 Urine Output: 350 Drains: No Packing: No Pathology: Yes Complications: No immediate complications Condition: Stable Disposition: PACU [place] Baby Date of : 09/25/23 Time of : 12:26 Weeks of gestation at delivery: 36 Infant gender: Female Weight (pounds): 4 Weight (ounces): 15 presentation: vertex position: Right Occiput Anterior Placenta delivery description: Manual Removal Cord Vessel Description: 3 Vessels, Nuchal Cord and Loose score one minute: 6 score five minutes: 9
--- NOTE | 2023-09-25 12:53 | PM.DS ---
DS: Admitting Diagnosis Discharge Date 09/27/2023 Admitting Diagnosis 36 week / -induced hypertension DS: Discharge Diagnosis Discharge Diagnosis (1) Preeclampsia: Code(s): O14.90 - Unspecified pre-eclampsia, unspecified trimester Status: Acute (2) Uterine fibroid complicating care, baby not yet delivered: Code(s): O34.10 - Maternal care for benign tumor of corpus uteri, unspecified trimester; D25.9 - Leiomyoma of uterus, unspecified Status: Acute DS: Summary Hospital Course Reason for hospitalization: patient was admitted and left a pH workup and indeed had labs consistent with PIH. She had Cervidil induction on 09/24 23 followed by rupture membranes in the a.m.. She got to about 4cm and did not progress with flat heard tones and underwent low-transverse section. Hospital Course: Her hospital course unremarkable. She remained afebrile. She was up, voiding without difficulty, eating regular diet, ambulating, and generally without complaints. Time Spent with Patient Time attestation: Total time spent providing and/or coordinating discharge services: Exam Const: General: cooperative, healthy appearing and comfortable Orientation/consciousness: oriented to person, oriented to place and oriented to time Resp: Effort & Inspection: normal respiratory effort Cardio: Rate: regular rate Rhythm: regular rhythm Heart sounds: S1 normal heart sound present and S2 normal heart sound present GI: Inspection: normal to inspection and incision ( Wound clear dry and intact) DS: Data Data Completed and Pending Labs on day of discharge: Labs from last 24 hours 09/24/23 05:08 RPR Non-reactive Discharge Plan Discharge Attending physician on discharge: Demetria Corrigan Discharging Clinician: Bertin Yanez Patient Disposition: Home, Self-Care Activity: may shower, no straining, may drive after 2 weeks and pelvic rest Diet: heart healthy Wound Care Instructions: follow printed instructions Patient Instructions: Antibiotic Form Stand Alone Forms: General Discharge Information Follow-up/Referrals: Demetria Corrigan MD [Physician] - Discharge Medications: New hydrocodone-acetaminophen 5-325 mg tablet 1 tablet PO Q4H PRN (Reason: pain) Qty: 30 0RF Continued ergocalciferol (vitamin D2) [Vitamin D2] 1,250 mcg (50,000 unit) Capsule 1,250 mcg PO 2XW Rx Instructions: Takes every Friday and Friday PNV cmb#95-ferrous fumarate-FA [] 28 mg iron- 800 mcg Tablet 1 tablet PO DAILY aspirin 81 mg Capsule 81 mg PO DAILY Date of admission: 09/23/23 10:04 Primary Care Provider: Stephanie Lombardo Admitting Provider: Demetria Corrigan Attending physician on admission: Demetria Corrigan Condition: Stable
[2023-09-25] MEDS: ACETAMINOPHEN 500 MG TABLET 1000 MG PO (13:03)
[2023-09-25] MEDS: OXYTOCIN 30 UNITS/NS 500 ML 30 UNITS/500 ML BAG 125 UNITS IV CONT (13:49)
[2023-09-25] MEDS: HYDROmorphone HCL INJ (*CRX) 1 MG/ML SYR 0.5 MG IV PUSH (14:47)
[2023-09-25] MEDS: DOCUSATE SODIUM 100 MG CAPSULE PO (17:34)
[2023-09-25] MEDS: SIMETHICONE 80 MG TAB.CHEW PO (17:34)
[2023-09-25] MEDS: DEXTROSE 5%/0.45% SOD CHL 1,000 ML 125 ML IV CONT (18:02)
[2023-09-25] MEDS: KETOROLAC 15 MG/ML VIAL (*BKC) IV PUSH (18:49)
[2023-09-25] MEDS: ACETAMINOPHEN 325 MG TABLET 650 MG PO (18:49)
[2023-09-25] MEDS: LIDOCAINE 5% PATCH 1 PATCH TRANSDERM (18:50)
[2023-09-26] MEDS: ACETAMINOPHEN 325 MG TABLET 650 MG PO ×4 (00:48→20:53)
[2023-09-26] MEDS: KETOROLAC 15 MG/ML VIAL (*BKC) IV PUSH ×3 (00:48→13:46)
[2023-09-26 03:30] VITALS: BP 152/87
[2023-09-26 06:22] LABS: Basophils Percent Auto 0.1 % (0.2-1.2); Hematocrit 37.4 % (37.0-47.0); Hemoglobin 11.9 g/dL (12.0-15.0); Immature Granulocyte Absolute 0.12 K/mm3 (0.00-0.031); Immature Granulocyte Percent A 0.8 % (0-0.5); Lymphocytes Absolute Auto 2.36 K/mm3 (0.9-3.2); Lymphocytes Percent Auto 15.4 % (18.3-44.2); Mean Corpuscular HGB Conc 31.8 g/dl (32-36); Mean Corpuscular Hemoglobin 30.3 pg (26-34); Mean Corpuscular Volume 95.2 fl (80-100); Mean Platelet Volume 11.7 fl (7.4-10.4); Monocytes Absolute Auto 0.9 K/mm3 (0.1-0.6); Neutrophils Absolute Auto 11.9 K/mm3 (1.3-6.7); Neutrophils Percent Auto 77.7 % (45.5-73.1); Platelet Count Result 187 k/mm3 (150-375); Red Blood Count 3.93 M/mm3 (4.2-5.4); Red Cell Distribution Width 13.3 % (11.5-14.5); White Blood Count 15.4 K/mm3 (4.5-10.0)
--- NOTE | 2023-09-26 06:38 | PM.OBPNVD ---
OB - PN: Subj Subjective Date/time seen: 09/26/23 06:38 Interval history: Called and spoke with pt on telephone. Dr. Pauline Littlejohn previously discussed and recommended IOL this evening d/t preeclampsia. pt has no additional questions at this time. Patient comments: no complaints and pain well controlled baby status: doing well OB - PN: Obj Data Labs 09/26/23 03:25 09/24/23 05:08 Labs: Laboratory Results - last 24 hr 09/26/23 03:25 WBC 15.4 H RBC 3.93 L Hgb 11.9 L Hct 37.4 MCV 95.2 MCH 30.3 MCHC 31.8 L RDW 13.3 Plt Count 187 MPV 11.7 H Immature Gran % (Auto) 0.8 H Neut % (Auto) 77.7 H Lymph % (Auto) 15.4 L [place] % (Auto) 6.0 Eos % (Auto) 0.0 Baso % (Auto) 0.1 L Lymph # (Auto) 2.36 [place] # (Auto) 0.9 H Eos # (Auto) 0.0 Baso # (Auto) 0.0 Abs Immat Gran (auto) 0.12 H Absolute Neuts (auto) 11.9 H Absolute Nucleated RBC 0.000 Nucleated RBC % 0.0 OB - PN A/P Plan day: 1 Plan: routine care Time Spent With Patient Time: Total time spent is greater than 50% in coordination of care (as documented) at patient's floor/unit and/or counseling patient: Time with patient: less than 15 minutes Exam Const: General: cooperative, healthy appearing and comfortable Nutritional Appearance: average body habitus Orientation/consciousness: oriented to person, oriented to place and oriented to time Resp: Effort & Inspection: normal respiratory effort Cardio: Rate: regular rate Rhythm: regular rhythm Heart sounds: S1 normal heart sound present and S2 normal heart sound present GI: Inspection: normal to inspection and incision ( wound clean dry and intact)
[2023-09-26] MEDS: DOCUSATE SODIUM 100 MG CAPSULE PO ×2 (07:18→16:16)
[2023-09-26] MEDS: SIMETHICONE 80 MG TAB.CHEW PO ×3 (07:18→16:16)
[2023-09-26 07:30] VITALS: BP 136/79; PULSE 49; RESP 16; TEMP 36.7; O2SAT 97
--- NOTE | 2023-09-26 11:21 | PC.NURSE ---
[id number]. Introductions were made, then consulted with patient to assess needs related to . Mother led the conversation with her?plans to feed?her and the?experience so far. Mother explained she wants to BF infant, she pumped 2 times yesterday after delivery & none overnight, she was able to get 4ml of colostrum, and she has attempted to BF a few times. RN Encouraged understanding of the benefits of skin to skin, stimulating with massage touch, changing positions to encourage wakefulness, how to watch for early feeding cues, responsive feeding, feeding on demand (aiming for 8-12 times in 24 hours, about every 2-3 hours), milk production, building/maintaining a milk supply, duration of feeding, signs of adequate intake/output and how to record on the feeding sheet. Mother verbalized that has been very sleepy at the breast and has a hard time maintaining a latch.Mother would like to pump and continue with the goal to be able to BF independently. RN discussed protecting her milk supply with pumping every 3 hours for 15 min if does not have a nursing session for at least 10 min. RN explained to limit a feeding session to 30 min with breast feeding attempt and supplementing to not exhaust the infant. Mother works well with her with encouragement and education. Mother encouraged to call RN with infants next feeding to observe latch and help get baby to the breast. Reviewed comfort measures of healing with a warm, wet washcloth to rinse breast, then leave open to air-dry, good handwashing when or touching the breast/nipples to prevent infection. Mother voiced understanding of skin to skin, stimulating with massage touch, responsive feedings, hand expressed colostrum, talking to infant to encourage if it has been 2 -2.5 hours since the start of the last , to call if does not latch, or if there is discomfort with . Resources used for education were facilitated with the visual educational handouts, Inpatient resources provided with feeding sheet, name written on the communication board, and the mom/baby guide. Parents voiced understanding of information, demonstrated learning and will call if there is a request for assistance. Reported to the Primary RN.
--- NOTE | 2023-09-26 12:17 | WPDANLDNPN2 ---
Anes-Prog Note L&D-Neuraxial Date/Time: 09/26/23 12:17 Neuraxial medications: intrathecal PF morphine Opiod-related complaints: pruritis mild, no treatment Patient feedback: Patient satisfied with post-operative pain management.
--- NOTE | 2023-09-26 12:18 | WPDANLDPN2 ---
Anes-Prog Note L&D Date/Time: 09/26/23 12:18 Comfortable throughout: section Neuraxial method: spinal Epidural/Spinal procedure site: clean & non-tender Neuro status: Neuro function grossly intact. Cardiovascular status: normal Respiratory status: normal Airway patency: baseline Mental status: baseline Post-Op hydration status: normal Vital Signs: Last Vital Signs Temp 36.7 C 09/26/23 07:30 Pulse 49 L 09/26/23 07:30 Resp 16 09/26/23 07:30 BP 136/79 09/26/23 07:30 Pulse Ox 97 09/26/23 07:30 O2 Del Method Room Air 09/26/23 07:30 Pain score (VAS): 3/10 I/O: Intake & Output 09/25/23 09/26/23 09/26/23 23:59 07:59 15:59 Intake Total 500 Output Total 800 300 Balance -300 -300 Post-procedural complaints: pruritis mild, no treatment Patient feedback: Patient satisfied with anesthetic care.
[2023-09-26 12:30] VITALS: BP 158/93; PULSE 63; RESP 16
[2023-09-26 12:33] VITALS: BP 125/78; PULSE 66; RESP 16; TEMP 36.6; O2SAT 99
[2023-09-26] MEDS: HYDROcodone/acetaminophen (*CRX) 5-325 MG TABLET 1 TAB PO (16:16)
[2023-09-26 18:35] VITALS: BP 147/97; PULSE 74; RESP 18; TEMP 37; O2SAT 99
[2023-09-26] MEDS: IBUPROFEN 600 MG TABLET PO (20:53)
[2023-09-26] MEDS: LIDOCAINE 5% PATCH 1 PATCH TRANSDERM (21:14)
[2023-09-27 00:20] VITALS: BP 155/102; PULSE 67
--- NOTE | 2023-09-27 00:20 | PC.NURSE ---
0020- Sarahy Fields RN license pending entered the room to do a blood pressure check on the patient. The blood pressure was 155/102. Sarahy Fields RN license pending notified this RN (preceptor) and together called Dr. Pauline Littlejohn. Dr Pauline Littlejohn gave orders to give 200 mg oral labetalol at this time and recheck blood pressure in one hour. In addition, the labetalol is to be given q8hr.
[2023-09-27 00:21] VITALS: PULSE 67
[2023-09-27] MEDS: LABETALOL HCL 100 MG TABLET 200 MG PO ×2 (00:21→08:37)
[2023-09-27 04:00] VITALS: BP 140/93
[2023-09-27] MEDS: ACETAMINOPHEN 325 MG TABLET 650 MG PO ×2 (04:40→10:26)
[2023-09-27] MEDS: IBUPROFEN 600 MG TABLET PO ×2 (04:40→10:26)
--- NOTE | 2023-09-27 05:21 | P.PNOB_ITS ---
OB - PN: Subj Subjective Date/time seen: 09/27/23 05:21 Interval history: Called and spoke with pt on telephone. Dr. Pauline Littlejohn previously discussed and recommended IOL this evening d/t preeclampsia. pt has no additional questions at this time. Patient comments: no complaints and pain well controlled baby status: doing well OB - PN: Obj Data Labs 09/26/23 03:25 09/24/23 05:08 Labs: Laboratory Results - last 24 hr 09/26/23 03:25 WBC 15.4 H RBC 3.93 L Hgb 11.9 L Hct 37.4 MCV 95.2 MCH 30.3 MCHC 31.8 L RDW 13.3 Plt Count 187 MPV 11.7 H Immature Gran % (Auto) 0.8 H Neut % (Auto) 77.7 H Lymph % (Auto) 15.4 L [place] % (Auto) 6.0 Eos % (Auto) 0.0 Baso % (Auto) 0.1 L Lymph # (Auto) 2.36 [place] # (Auto) 0.9 H Eos # (Auto) 0.0 Baso # (Auto) 0.0 Abs Immat Gran (auto) 0.12 H Absolute Neuts (auto) 11.9 H Absolute Nucleated RBC 0.000 Nucleated RBC % 0.0 OB - PN A/P Plan day: 2 Plan: routine care, discharge home and follow up 6 weeks (4) Time Spent With Patient Time: Total time spent is greater than 50% in coordination of care (as documented) at patient's floor/unit and/or counseling patient: Time with patient: less than 15 minutes Exam Const: General: cooperative, healthy appearing and comfortable Nutritional Appearance: average body habitus Orientation/consciousness: oriented to person, oriented to place and oriented to time Resp: Effort & Inspection: normal respiratory effort Cardio: Rate: regular rate Rhythm: regular rhythm Heart sounds: S1 normal heart sound present and S2 normal heart sound present GI: Inspection: normal to inspection and incision ( wound is clean dry and intact)
[2023-09-27 08:30] VITALS: BP 141/100; PULSE 80; RESP 16; TEMP 36.9
[2023-09-27] MEDS: SIMETHICONE 80 MG TAB.CHEW PO (08:37)
[2023-09-27] MEDS: DOCUSATE SODIUM 100 MG CAPSULE PO (08:37)
[2023-09-27] MEDS: MULTIVIT/MIN/PREN/FOL AC/IRON TABLET 1 TAB PO (08:50)
[2023-09-29 08:10] VITALS: BP 161/107; PULSE 78; RESP 18; TEMP 37; O2SAT 100
== END 2023-09-27 11:30 | disposition home or self-care (01) | DRG 788 ==
LOC: ANHOBPP 17:07 → ANHLDR 09-24 15:04 → ANHOB2 09-25 15:17
PROVIDERS: Obstetrics & Gynecology; Admitting Provider Obstetrics & Gynecology Gynecology; PCP Advanced Practice Midwife; Visit Provider Obstetrics & Gynecology Gynecology
PROC: 10D00Z1 Extraction of Products of Conception, Low, Open Approach (ICD-10-PCS; CPT 59514; principal; 2023-09-25 11:30)
DX: O14.14 Severe pre-eclampsia complicating childbirth (principal); Z3A.36 36 weeks gestation of pregnancy; Z37.0 Single live birth; D25.9 Leiomyoma of uterus, unspecified; O34.13 Maternal care for benign tumor of corpus uteri, third trimester; O99.892 Other specified diseases and conditions complicating childbirth; R00.1 Bradycardia, unspecified; O69.81X0 Labor and delivery complicated by cord around neck, without compression, not applicable or unspecified; O99.824 Streptococcus B carrier state complicating childbirth
CPT/HCPCS: 36415; 59025; 80053; 81001; 82570; 83615; 84156; 84550; 85025; 85027; 86592; 86703; 86850; 86900; 86901; 93005; 96372; A9270; G0432; J0290; J0456; J0702; J1170; J1885; J2274; J2371; J2405; J2590; J7030; J7120; J7121

== ENCOUNTER 2023-09-29 08:30 | Outpatient (CLI) | payer OTHER, SELFPAY ==
[2023-09-29 09:00] VITALS: BP 150/90; PULSE 60
[2023-09-29 09:02] VITALS: PULSE 60
[2023-09-29 09:02] LABS: Basophils Absolute Auto 0.1 K/mm3 (0.0-0.1); Basophils Percent Auto 0.4 % (0.2-1.2); Eosinophils Absolute Auto 0.3 K/mm3 (0-0.3); Eosinophils Percent Auto 2.8 % (0-4.4); Hematocrit 36.3 % (37.0-47.0); Hemoglobin 11.5 g/dL (12.0-15.0); Immature Granulocyte Absolute 0.08 K/mm3 (0.00-0.031); Immature Granulocyte Percent A 0.7 % (0-0.5); Lymphocytes Absolute Auto 4.06 K/mm3 (0.9-3.2); Lymphocytes Percent Auto 36.3 % (18.3-44.2); Mean Corpuscular HGB Conc 31.7 g/dl (32-36); Mean Corpuscular Hemoglobin 29.8 pg (26-34); Mean Platelet Volume 9.9 fl (7.4-10.4); Monocytes Absolute Auto 0.5 K/mm3 (0.1-0.6); Monocytes Percent Auto 4.7 % (2.6-8.5); Neutrophils Absolute Auto 6.1 K/mm3 (1.3-6.7); Neutrophils Percent Auto 55.1 % (45.5-73.1); Platelet Count Result 216 k/mm3 (150-375); Red Blood Count 3.86 M/mm3 (4.2-5.4); Red Cell Distribution Width 13.4 % (11.5-14.5); White Blood Count 11.2 K/mm3 (4.5-10.0)
[2023-09-29] MEDS: LABETALOL HCL 100 MG TABLET 200 MG PO (09:02)
[2023-09-29 09:13] LABS: Alanine Aminotransferase 24 U/L (6-35); Albumin Level 3.2 g/dL (3.5-5.1); Alkaline Phosphatase 89 U/L (38-126); Anion Gap 3 mmol/L (4-12); Aspartate Amino Transferase 33 U/L (14-36); Bilirubin,Total 0.4 mg/dL (0.2-1.3); Blood Urea Nitrogen 12 mg/dL (7-17); Calcium 8.6 mg/dL (8.4-10.2); Carbon Dioxide 26 mmol/L (22-30); Chloride 108 mmol/L (98-107); Estimated Glomerular Filt Rate > 60; Glucose 83 mg/dL (65-110); Sodium 137 mmol/L (137-145); Uric Acid 8.1 mg/dL (2.5-7.5)
[2023-09-29 10:04] VITALS: BP 165/95; PULSE 65
[2023-09-29 10:15] VITALS: BP 165/93; PULSE 53
--- NOTE | 2023-09-29 10:29 | PC.NURSE ---
Dr Corrigan on unit, BP's and labs reviewed. New orders received.
[2023-09-29 10:30] VITALS: BP 169/98; PULSE 58
[2023-09-29] MEDS: NIFEdipine 10 MG CAPSULE PO (10:33)
[2023-09-29 11:35] VITALS: BP 123/80; PULSE 88
== END 2023-09-29 11:45 | disposition home or self-care (01) ==
LOC: ANHOBOP 08:40 → ANHOBPP 08:43
PROVIDERS: Obstetrics & Gynecology Gynecology; PCP Advanced Practice Midwife; Visit Provider Advanced Practice Midwife
DX: O26.899 Other specified pregnancy related conditions, unspecified trimester (principal); R03.0 Elevated blood-pressure reading, without diagnosis of hypertension
CPT/HCPCS: 36415; 80053; 84550; 85025; 99199; A9270

== ENCOUNTER 2023-11-11 15:17 | Emergency (ER) | payer OTHER, SELFPAY ==
[2023-11-11] VITALS (7 sets, daily range): BP systolic 114–168; BP diastolic 61–90; PULSE 81–170; RESP 13–20; TEMP 36.6–37.1; O2SAT 98–100
--- NOTE | ~2023-11-11 | XR_ITS ---
EXAMINATION: XR chest 2V DATE: 11/11/2023 15:55 INDICATION: Chest pain. Tachycardia. TECHNIQUE: Frontal and lateral views of the chest were obtained. COMPARISON: None. FINDINGS: There is no pneumonia, pleural effusion, or pneumothorax. The heart size is normal. IMPRESSION: 1. No acute cardiopulmonary disease. Reviewed, dictated and finalized at location A.
--- NOTE | ~2023-11-11 | CT_ITS ---
EXAMINATION: CTA chest PE protocol DATE: 11/11/2023 17:25 INDICATION: Tachycardia. Recent section. TECHNIQUE: Computed tomography (CT) pulmonary angiogram of the chest was performed with 100 mL Omnipa que-350 intravenous contrast. Additional 3D reconstructions utilizing coronal maximum intensity proje ction (MIP) were performed. The dose-length product was 987.36 mGy-cm. COMPARISON: None FINDINGS: No pulmonary embolism. Lungs are clear with no pneumonia, pulmonary edema or pleural effusion. Heart size is normal. No pericardial effusion. Thoracic aorta is normal in caliber with no dissection. No p athologically enlarged thoracic lymphadenopathy. Visualized upper abdomen is unremarkable. Mild S-sha ped thoracic scoliosis with mild spondylosis. Mild likely physiologic anterior wedging at T12 with Sc hmorl's node along the superior endplate. IMPRESSION: 1. No pulmonary embolism or other acute cardiopulmonary disease. Reviewed, dictated and finalized at location A.
--- NOTE | 2023-11-11 15:28 | ECG_ITS ---
Test Date: 2023-11-11 15:30:44 Measurements Intervals [place] Rate: 144 P: 43 NC: 138 QRS: -11 QRSD: 76 T: 33 QT: 327 QTc: 507 Interpretive Statements SINUS TACHYCARDIA POSSIBLE ANTERIOR MYOCARDIAL INFARCTION , PROBABLY OLD INFERIOR INFARCT, AGE INDETERMINATE BORDERLINE ST-T WAVE ABNORMALITY- HIGH LATERAL LEADS BASELINE ARTIFACT- II, III, AVF, V1, V6 ABNORMAL ECG Compared to ECG 09/23/2023 12:22:21 HEART RATE HAS INCREASED Electronically Signed On 11-11-2023 16:17:38 CDT by Augustin Lujan D.O.
[2023-11-11 15:44] LABS: Basophils Percent Auto 0.4 % (0.2-1.2); Eosinophils Absolute Auto 0.1 K/mm3 (0-0.3); Eosinophils Percent Auto 1.1 % (0-4.4); Hematocrit 43.1 % (37.0-47.0); Hemoglobin 14.1 g/dL (12.0-15.0); Immature Granulocyte Absolute 0.05 K/mm3 (0.00-0.031); Immature Granulocyte Percent A 0.5 % (0-0.5); Lymphocytes Absolute Auto 3.97 K/mm3 (0.9-3.2); Lymphocytes Percent Auto 37.4 % (18.3-44.2); Mean Corpuscular HGB Conc 32.7 g/dl (32-36); Mean Corpuscular Hemoglobin 30.2 pg (26-34); Mean Corpuscular Volume 92.3 fl (80-100); Mean Platelet Volume 9.4 fl (7.4-10.4); Monocytes Absolute Auto 0.6 K/mm3 (0.1-0.6); Monocytes Percent Auto 5.4 % (2.6-8.5); Neutrophils Absolute Auto 5.9 K/mm3 (1.3-6.7); Neutrophils Percent Auto 55.2 % (45.5-73.1); Platelet Count Result 409 k/mm3 (150-375); Red Blood Count 4.67 M/mm3 (4.2-5.4); Red Cell Distribution Width 11.9 % (11.5-14.5); White Blood Count 10.6 K/mm3 (4.5-10.0)
[2023-11-11 15:55] LABS: Prothrombin Time 13.8 Seconds (11.1-14.7)
[2023-11-11 15:59] LABS: Alanine Aminotransferase 23 U/L (6-35); Albumin Level 4.9 g/dL (3.5-5.1); Alkaline Phosphatase 101 U/L (38-126); Anion Gap 18 mmol/L (4-12); Aspartate Amino Transferase 23 U/L (14-36); Bilirubin,Total 0.3 mg/dL (0.2-1.3); Blood Urea Nitrogen 12 mg/dL (7-17); Calcium 9.3 mg/dL (8.4-10.2); Carbon Dioxide 22 mmol/L (22-30); Chloride 102 mmol/L (98-107); Estimated CRCL calculation 110 ml/min; Estimated Glomerular Filt Rate > 60; Glucose 142 mg/dL (65-110); Lipase 80 U/L (23-300); Sodium 142 mmol/L (137-145)
[2023-11-11] MEDS: LACTATED RINGERS 1,000 ML 999 ML IV CONT ×2 (16:05)
[2023-11-11 16:11] LABS: Troponin I < 0.012 ng/mL (0.000-0.034)
[2023-11-11 16:17] LABS: D Dimer 1.08 ug/mL (<0.48)
--- NOTE | 2023-11-11 18:23 | ED.ARRPALP ---
HPI - Arrhythmia/Palpitations General Chief Complaint: Arrhythmia/Palpitations Stated Complaint: high BP Time Seen by Provider: 11/11/23 15:37 History of Present Illness HPI narrative: This is a 33-year-old female with a past medical history significant for preeclampsia who is 6 weeks status post emergent . Patient states that she wanted to be evaluated today as she had a palpitation sensation he while at home and knows that her heart rate was rapid. She was recently in touch with her primary care provider yesterday after she was discussing her blood pressure management and goals and was recently titrated from 60 mg to 90 mg of extended-release nifedipine yesterday. Patient has only taken 2 doses of this medication since. Patient states that she feels flushed, feeling tachycardic, lightheaded to the point that she might pass out but did not have any actual syncope. Denies any chest pain, shortness a breath, nausea, vomiting, diarrhea, constipation. Her incision site is well healed no purulence or erythema, irritation. The child at home has been doing well and she has been breast-feeding without difficulty. The patient was recently discharged from her OBGYN's service after the 6 week kuldeep and was started on high-dose nifedipine by her primary care yesterday. No history of DVT/PE. She was otherwise in her normal state of health . Related Data Home Medications Medication Instructions Recorded Confirmed aspirin 81 mg capsule 81 mg PO DAILY 08/14/23 09/23/23 ergocalciferol (vitamin D2) 1,250 1,250 mcg PO 2XW 08/14/23 09/23/23 mcg (50,000 unit) capsule (Vitamin D2) vit no.95-ferrous 1 tablet PO DAILY 08/14/23 09/23/23 fumarate 28 mg-folic acid 800 mcg tablet () Allergies Allergy/AdvReac Type Severity Reaction Status Date / Time No Known Allergies Allergy Verified 09/23/23 14:58 Review of Systems Review of Systems: As reviewed above in HPI PMFSH Past Medical History Medical History Subcutaneous mass of left upper extremity Family History Family History Father Family history of elevated blood lipids Hypertension Mother Family history of elevated blood lipids Hypertension Family history of diabetes mellitus in first degree relative Social History Social History Smoking status: Never smoker Alcohol intake: current Substance use: never Do You Feel Safe in your Home?: Yes Lack of Transportation: No Lack of Food: Never True Current Housing: I Have Housing Concerned About Future Housing: No Difficulty Paying Gas/Electric Bills: No Difficulty Paying for Meds: No Currently Unemployed: No Education: Master's Degree or Higher Difficulty w/ Childcare or Family Care: No Gender identity (if verbalized by the patient): Female Spiritual care concerns: No Exam Narrative: GENERAL: [Well-appearing, well-nourished, and in no acute distress.] HEAD: [Normocephalic, atraumatic.] EYES: [PERRLA and EOMI.] ENT: Nares clear, no rhinorrhea or epistaxis. Mucous membranes moist. NECK: Supple. CHEST: [Clear to auscultation. No respiratory distress.] HEART: [Regular rate and rhythm]. No murmur heard. [Normal peripheral pulses.] ABDOMEN: [Soft, nondistended], [nontender], [No rigidity or guarding] scar appears well healed without any erythema, dehiscence. EXTREMITIES: Normal range of motion. [No edema.] SKIN: Warm, dry, no rash. NEURO: [No focal deficits]. Alert and oriented [x3.] PSYCH: [Normal mood and affect.] Course Vital Signs Vital signs: Vital Signs Temperature 37.1 C 11/11/23 15:22 Pulse Rate 170 H 11/11/23 15:22 Respiratory Rate 19 11/11/23 15:22 Blood Pressure 124/61 11/11/23 15:22 Pulse Oximetry 100 11/11/23 1
--- NOTE | 2023-11-11 18:30 | ECG_ITS ---
Test Date: 2023-11-11 18:36:23 Measurements Intervals [place] Rate: 86 P: 32 NM: 136 QRS: -14 QRSD: 80 T: 33 QT: 315 QTc: 377 Interpretive Statements SINUS RHYTHM POSSIBLE ANTERIOR MYOCARDIAL INFARCTION , PROBABLY OLD INFERIOR INFARCT, AGE INDETERMINATE BORDERLINE ST-T WAVE ABNORMALITY- HIGH LATERAL LEADS BASELINE ARTIFACT- I, II, AVR, V1, V6 ABNORMAL ECG Compared to ECG 11/11/2023 15:30:44 HEART RATE HAS DECREASED Electronically Signed On 11-11-2023 19:59:11 CDT by Augustin Lujan D.O.
== END 2023-11-11 18:51 | disposition home or self-care (01) ==
PROVIDERS: Emergency Provider Student in an Organized Health Care Education/Training Program; PCP Advanced Practice Midwife
DX: R00.2 Palpitations (principal); E86.0 Dehydration; E87.6 Hypokalemia; R00.0 Tachycardia, unspecified; R94.31 Abnormal electrocardiogram [ECG] [EKG]; Z79.82 Long term (current) use of aspirin; Z79.899 Other long term (current) drug therapy
CPT/HCPCS: 36415; 71046; 71275; 80053; 83690; 84484; 85025; 85380; 85610; 85730; 93005; 96360; 99284; J7120; Q9967